=== PATIENT | female | born 1935 | race Caucasian/White ===

== ENCOUNTER 2017-11-16 09:46 | Outpatient (CLI) | payer MEDICARE, BC ==
--- NOTE | 2017-11-16 13:05 | MRI ---
MRI THORACIC SPINE WITH AND WITHOUT CONTRAST: Date: 11/16/17 HISTORY: Spinal hemangiomas, follow-up. Reference made to prior thoracic spine imaging dating back to April 2011. FINDINGS: Signal abnormalities of the T1, T5, and T12 vertebral bodies are redemonstrated, grossly stable. There is no evidence of intramedullary lesion or abnormal cord expansion. There is no interval compression fracture or subluxation. The mild degree of multilevel degenerative change is redemonstrated. Again seen, there is an oval focus of signal alteration at the medial right hepatic lobe, approximate ly 2.7 cm in diameter, with evidence of enhancement. IMPRESSION: 1. Stable pre and postcontrast thoracic spine MRI with multifocal vertebral signal alteration compat ible with stable multifocal hemangioma formation. 2. No intrinsic cord pathology evident. POS: [facility]
== END 2017-11-16 09:47 | disposition home or self-care (01) ==
LOC: SCSMRI 09:46
PROVIDERS: ATTEND Neurological Surgery
DX: D18.09 Hemangioma of other sites (principal)
CPT/HCPCS: 72157; 82565